=== PATIENT | male | born 1955 | race Hispanic/Latino ===

== ENCOUNTER 2021-06-17 06:27 | Day surgery (SDC) | payer MEDICARE ==
[2021-06-17] MEDS ORDERED: SODIUM CHLORIDE 0.9% 1000 ML 1,000 ML IV SCH (06:45)
[2021-06-17] MEDS ORDERED: MIDAZOLAM 2 MG/2 ML INJ ONE (07:14)
[2021-06-17] MEDS ORDERED: LIDOCAINE MPF (2%) 20 MG/1 ML VIAL 5 ML ONE (07:14)
[2021-06-17] MEDS ORDERED: propofoL 200 MG/20 ML VIAL IV ONE ×2 (07:14)
[2021-06-17] MEDS ORDERED: ePHEDrine SULFATE 50 MG/1 ML INJ ONE (07:15)
[2021-06-17 07:18] LABS: Basophils % (Auto) 0.6 % (0.0-1.8); Eosinophils # (Auto) 0.4 K/mm3 (0.0-0.4); Eosinophils % (Auto) 6.2 % (0.0-4.3); Hematocrit 48.2 % (35.5-45.6); Hemoglobin 16.2 gm/dl (11.8-15.2); Lymphocytes # (Auto) 2.4 K/mm3 (1.2-5.4); Lymphocytes % (Auto) 37.1 % (13.4-35.0); Mean Corpuscular HGB Conc 34 % (32-34); Mean Corpuscular Volume 99 fl (84-94); Monocytes # (Auto) 0.7 K/mm3 (0.0-0.8); Monocytes % (Auto) 11.6 % (0.0-7.3); Platelet Count 243 K/mm3 (140-440); Red Blood Count 4.86 M/mm3 (3.65-5.03); Red Cell Distribution Width 15.8 % (13.2-15.2)
[2021-06-17 07:24] LABS: BUN/Creatinine Ratio 17; Blood Urea Nitrogen 15 mg/dL (9-20); Calcium 8.9 mg/dL (8.4-10.2); Hemolysis Index 20
[2021-06-17 07:25] LABS: INR 1.38 (0.87-1.13); Partial Thromboplastin Time 34.4 Sec. (24.2-36.6)
[2021-06-17] MEDS ORDERED: ATROPINE 0.1% (1 MG/10 ML) CARDIAC SYRINGE ONE (07:33)
--- NOTE | 2021-06-17 07:38 | Anesthesia Consultation ---
Anesthesia Consult and Med Hx - Airway Anesthetic Teeth Evaluation: Good ROM Head & Neck: Adequate Mental/Hyoid Distance: Adequate Mallampati Class: Class II Intubation Access Assessment: Probably Good - Pulmonary Exam CTA: Yes - Cardiac Exam Cardiac Exam: RRR - Pre-Operative Health Status ASA Pre-Surgery Classification: ASA2 Proposed Anesthetic Plan: MAC - Pulmonary Hx Smoking: Yes (Quit 30+ years ago) Hx Asthma: No COPD: No Hx Pneumonia: Yes (Walking pneumonia at @ 15 yo) Hx Sleep Apnea: No - Cardiovascular System Hx Hypertension: No (EF 55-60% on most recent echo 03/2021) Hx Heart Attack/AMI: No Hx Cardia Arrhythmia: Yes (Afib - rate controlled) - Central Nervous System Hx Seizures: No CVA: No Hx Psychiatric Problems: No - Gastrointestinal Hx Gastroesophageal Reflux Disease: No - Endocrine Hx Renal Disease: No Hx Liver Disease: No Hx Non-Insulin Dependent Diabetes: No Hx Hypothyroidism: Yes - Hematic Hx Anemia: No - Other Systems Hx Alcohol Use: Yes (occasional) Hx Substance Use: No Hx Cancer: No Hx Obesity: No - Additional Comments Anesthesia Medical History Comments: No hx of anesthesia complications. Documents from most recent cardiology visit on chart.
--- NOTE | 2021-06-17 07:38 | Anesthesia Day of Surgery ---
Anesthesia Day of Surgery - Day of Surgery Patient Examined: Yes Patient H&P Reviewed: Yes Patient is NPO: Yes
--- NOTE | 2021-06-17 08:22 | Short Stay Summary ---
Short Stay Documentation Date of service: 06/17/21 Narrative H&P: Is a 66-year-old male with a past medical history of hypothyroidism and A. fib patient presents today for elective cardioversion after 6 weeks of uninterrupted anticoagulation - History Past Medical History: other (Hypothyroidism and A. fib) Past Surgical History: No surgical history Social history: smoking (Former smoker) - Allergies and Medications Current Medications: Allergies bee venom protein (honey bee) Adverse Reaction (Severe, Verified 06/17/21 07:33) Anaphylaxis Home Medications Medication Instructions Recorded Confirmed Last Taken Type Rivaroxaban [Xarelto] 20 mg PO QDAY 06/17/21 06/17/21 06/16/21 History 20 dilTIAZem HCL [Diltiazem HCl] tab PO TID 06/17/21 06/16/21 History Active Medications Sodium Chloride (Nacl 0.9% 1000 Ml) 1,000 mls @ 42 mls/hr IV DIRECT TESSY Last Admin: 06/17/21 08:16 Dose: 42 mls/hr - Physical exam General appearance: no acute distress Integumentary: no rash, no growths HEENT: PERRLA Lungs: Clear to auscultation Heart: Other (Irregularly irregular) Gastrointestinal: normoactive bowel sounds Extremities: pulses intact, No edema, normal temperature, normal color Neurological: Normal speech, Strength at 5/5 X4 ext - Brief post op/procedure progress note Date of procedure: 06/17/21 Pre-op diagnosis: Atrial fibrillation Post-op diagnosis: same - Hospital course Hospital course: Presents today for elective cardioversion. Patient successfully converted to sinus rhythm. Patient tolerated procedure well with no complications - Disposition Condition at discharge: Good Disposition: 01 HOME / SELF CARE / HOMELESS - Discharge Diagnoses (1) Afib Status: Acute Short Stay Discharge Plan Activity: advance as tolerated Diet: low fat, low cholesterol, low salt Follow up with: TANNER JERNIGAN MD [Primary Care Provider] - 7 Days JAQUI COMER MD [Staff Physician] - 7 Days
--- NOTE | 2021-06-17 11:00 | Electrocardiograph Report ---
[facility] Test Date: 2021-06-17 Test Time: 08:40:50 Pat Name: NARESH HOGAN Department: Room: Gender: M Resort Desk Clerk: MENG : [id number] Requested By: JAQUI COMER Order Number: [id number] Reading MD: Jaqui Comer Measurements Intervals [place] Rate: 96 P: 48 NC: 175 QRS: 40 QRSD: 84 T: 10 QT: 361 QTc: 456 Interpretive Statements Sinus rhythm Ventricular premature complex No previous ECG available for comparison Electronically Signed On 06-17-2021 11:00:24 EDT by Jaqui Comer
--- NOTE | 2021-06-17 12:17 | Post Anesthesia Evaluation ---
- Post Anesthesia Evaluation Patient Participated: Yes Airway Patent: Yes Stable Respiratory Function: Yes Nausea/Vomiting: No Temp > 96.8F: Yes Pain Manageable: Yes Adequeate Hydration: Yes Anesthesia Complications: No Block Receding Appropriately: Not Applicable Patient on Ventilator: No
[2021-06-17 14:08] VITALS: BP 126/83
== END 2021-06-17 10:40 | disposition home or self-care (01) ==
LOC: CATHLABREC 06:27
PROVIDERS: ATTEND Internal Medicine
DX: I48.0 Paroxysmal atrial fibrillation (principal); I42.9 Cardiomyopathy, unspecified; I10 Essential (primary) hypertension; E03.9 Hypothyroidism, unspecified; Z87.891 Personal history of nicotine dependence; Z79.899 Other long term (current) drug therapy; Z87.01 Personal history of pneumonia (recurrent); Z72.89 Other problems related to lifestyle; Z82.49 Family history of ischemic heart disease and other diseases of the circulatory system
CPT/HCPCS: 36415; 80048; 85025; 85610; 85730; 92960; 93005; J2250; J2704; J3490; J7030; U0003; J7120; Q0162; J0461